=== PATIENT | female | born 1980 | race Caucasian/White ===

== ENCOUNTER → 2016-06-10 | Outpatient (CLI) | payer OTHER ==
[~2016-06-10] VITALS: Ht 160 cm; Wt 56.2 kg
[~2016-06-10] MED LIST: AUGM500T7 PO; FOLI1TAB4 PO; FURO20TA PO; HYDR2.5%T RECTAL; INSULIN HUMAN REGULAR 1,000 UNITS/10 ML VIAL SQ PRN; LACT10SO48 PO; LACTATED RINGER'S 1000 ML IV SCH; LORA1TAB12 PO; METOPROLOL TARTRATE 25 MG TAB PO PRN; METR500T10 PO; NADO1TAB16 PO; NORC5TAB PO; PANT20TA2 PO; PANT40TA3 PO; PHYT10P SQ; PRED10 PO; PROPOFOL 200 MG/20 ML AMP IV ONE; SODI650T PO; SODIUM CHLORID 0.9% 500 ML IV SCH; SPIR25TA PO; TRAM50TA PO; XIFA550T4 PO
[2016-06-10 12:01] VITALS: BP 102/62; PULSE 89; RESP 18; TEMP 98.9; O2SAT 100
[2016-06-10 12:39] LABS: INTERNATIONAL NORMALIZED RATIO 1.2 RATIO; PROTHROMBIN TIME - PATIENT 13.4 SEC (9.8-11.6)
[2016-06-10 14:11] VITALS: TEMP 98.1
[2016-06-10 14:28] VITALS: BP 108/73; PULSE 86; RESP 16; O2SAT 100
== END ==
LOC: HEND 10:56
PROVIDERS: ATTEND Internal Medicine Gastroenterology
DX: K29.50 Unspecified chronic gastritis without bleeding (principal); D64.9 Anemia, unspecified; R79.1 Abnormal coagulation profile; K70.31 Alcoholic cirrhosis of liver with ascites; K76.6 Portal hypertension; K31.89 Other diseases of stomach and duodenum; K64.4 Residual hemorrhoidal skin tags; K64.8 Other hemorrhoids; K92.1 Melena; R00.0 Tachycardia, unspecified
CPT/HCPCS: 85610; 88305; 88312

== ENCOUNTER 2016-09-03 12:44 | Day surgery (SDC) | payer OTHER ==
[~2016-09-03 12:44] MED LIST changes: -AUGM500T7 PO; -INSULIN HUMAN REGULAR 1,000 UNITS/10 ML VIAL SQ PRN; -LACTATED RINGER'S 1000 ML IV SCH; -METOPROLOL TARTRATE 25 MG TAB PO PRN; -METR500T10 PO; -NORC5TAB PO; -PHYT10P SQ; -PROPOFOL 200 MG/20 ML AMP IV ONE; -SODI650T PO; -SODIUM CHLORID 0.9% 500 ML IV SCH; -TRAM50TA PO; -XIFA550T4 PO
[2016-09-03 14:20] VITALS: BP 144/99; PULSE 102; RESP 20; TEMP 98.6; O2SAT 98
--- NOTE | 2016-09-03 16:02 | RADRPT ---
EXAM DATE/TIME: 09/03/2016 13:43 [place] COMPARISON: No previous studies available for comparison. [facility], Jul 14 2016. INDICATIONS : Right thyroid nodules. MEDICAL HISTORY : Gastroesophageal reflux disease. Liver disease. Thyroid nodule. Anxiety. Ovarian cyst. SURGICAL HISTORY : Appendectomy. EGD. Colonoscopy. Laparoscopy. Paracentesis. Left knee surgery. ENCOUNTER: Initial ACUITY: 1 day PAIN SCORE: 0/10 LOCATION: Right neck ORGAN: Right thyroid lobe SPECIMENS: Six fine needle aspirate(s) submitted for pathologic evaluation. DEVICE: 22 gauge needle Post procedure scanning reveals no hematoma or other complication. The possibility does exist that the tissue obtained will be non-diagnostic. If the sample is non-debbi gnostic a repeat biopsy or surgical biopsy may need to be performed. TECHNIQUE: 1. Ultrasound guidance for needle biopsy. 2. Needle biopsy. The risks, benefits, and alternatives to ultrasound guided needle biopsy were explained to the patien t in detail including the risk of bleeding and infection. Written and verbal informed consent was ob tained. With the patient on the ultrasound table, images were obtained. The right lobe is diffusely enlarged and heterogeneous with possibly a nodule occupying most of the right lobe. Additionally, medially in the mid gland there is a rim calcified hypoechoic nodule measuring 1.7 x 1.4 x 1.4 cm. Overlying ski n was prepped and draped in the usual sterile fashion and Lidocaine was utilized as a local anestheti c. A needle was advanced into the dominant nodule as well as a rim calcified nodule and 3 samples were o btained from each nodule.. The patient tolerated the procedure well and left the ultrasound suite in stable condition. CONCLUSION: Uncomplicated ultrasound guided needle biopsy of 2 nodules within the right lobe. Bryan Celaya MD on September 03, 2016 at 15:58 Board Certified Radiologist. This report was verified electronically.
[2016-09-03] MEDS ORDERED: SODIUM BICARBONATE 8.4% INJ 50 MEQ/50 ML SYR ONE (16:04)
[2016-09-03] MEDS ORDERED: LIDOCAINE HCL 1% PF 30 ML VIAL ONE (16:04)
[2016-10-02] MEDS ORDERED: LORA1TAB12 PO (10:18)
[2016-10-03] MEDS ORDERED: NORC5TAB PO (11:08)
[2016-11-12] MEDS ORDERED: TRAM50TA PO (11:25)
== END 2016-09-03 14:48 | disposition home or self-care (01) ==
LOC: HRAD 12:44 → HRIP 12:47 → HRAD 14:48
PROVIDERS: ATTEND Surgery Trauma Surgery
DX: E04.2 Nontoxic multinodular goiter (principal)
CPT/HCPCS: 10022; 76942; 88172; 88173

== ENCOUNTER → 2016-10-03 | Day surgery (SDC) | payer OTHER ==
[~2016-10-03] VITALS: Ht 160 cm; Wt 70.4 kg
[~2016-10-03] MED LIST changes: +*morphine SULFATE 8 MG/ML PERIprocedure ONLY ONE; +ACETAMINOPHEN 1000 MG/100 ML VIAL IV SCH; +ACETAMINOPHEN/HYDROcodone 325 MG/5 MG TAB PO PRN; +CHLORHEXIDINE GLUCONATE 2 % 1 PACK (2 CLOTHS) TOPICAL PRN; +DO NOT ADM ANY ANTICOAGULANT DRUGS PRN; +FAMOTIDINE 20 MG/2 ML VIAL ONE; -FOLI1TAB4 PO; -FURO20TA PO; +GELATIN 12 MM/7 MM FOAM ONE; +GELATIN 12 MM/7 MM FOAM TOP ONE; -HYDR2.5%T RECTAL; +HYDROmorphone HCL PF 2 MG/ML VIAL ONE; +INSULIN HUMAN REGULAR 1,000 UNITS/10 ML VIAL SQ PRN; +LACTATED RINGER'S 1000 ML INJ 1,000 ML IV ONE; +LACTATED RINGER'S 1000 ML IV PRN; +METOPROLOL TARTRATE 25 MG TAB PO PRN; +MIDAZOLAM HCL 2 MG/2 ML VIAL ONE; +MORPHINE SULFATE 4 MG/ML INJ IV PUSH PRN; -NADO1TAB16 PO; +NALOXONE HCL 0.4 MG/ML AMP IV PRN; +NORC5TAB PO; +ONDANSETRON HCL 4 MG/2 ML VIAL IV PRN; +ONDANSETRON HCL 4 MG/2 ML VIAL IV PUSH ONE; -PANT20TA2 PO; -PANT40TA3 PO; +POVIDONE IODINE 5% (ANTISEPSIS KIT) 4 APPLICATIONS EACH NARE PRN; -PRED10 PO; +PROPOFOL 200 MG/20 ML AMP IV ONE; +Post-op Orders (for Pharmacy) MISC XX ONE; +SODIUM CHLORID 0.9% 500 ML IV PRN; +SODIUM CHLORIDE 0.9% FLUSH 10 ML FLUSH IV FLUSH PRN; +SODIUM CHLORIDE 0.9% FLUSH 10 ML FLUSH IV FLUSH SCH; -SPIR25TA PO; +THROMBIN (TOPICAL) 5,000 UNIT VIAL ONE; +TRAM50TA PO; +VANCOMYCIN HCL 1000 MG ON-CALL/NS 250 ML IV SCH; +ceFAZolin 1,000 MG/NS 100 ML IV SCH; +fentaNYL CITRATE 250 MCG/5 ML AMP ONE
[2016-10-03 06:43] VITALS: BP 137/90; PULSE 93; RESP 18; TEMP 98.6; O2SAT 98
[2016-10-03 07:11] LABS: AUTOMATED NEUTROPHIL # 2.7 TH/MM3 (1.8-7.7); BASOPHIL % 0.6 % (0.0-2.0); EOSINOPHIL % 1.3 % (0.0-4.0); HEMATOCRIT 39.7 % (35.0-46.0); HEMO FLAGS DIFF FINAL; LYMPH % 20.2 % (9.0-44.0); LYMPHOCYTE # 0.8 TH/MM3 (1.0-4.8); MEAN CELL VOLUME 94.5 FL (80.0-100.0); MEAN CORPUSCULAR HGB CONC 33.9 % (32.0-36.0); NEUT % 66.9 % (16.0-70.0); PLATELET COUNT 125 TH/MM3 (150-450); RED CELL DISTRIBUTION WIDTH 12.5 % (11.6-17.2)
[2016-10-03 07:36] LABS: BICARBONATE 22.5 MEQ/L (21.0-32.0); POTASSIUM 3.7 MEQ/L (3.5-5.1)
--- NOTE | 2016-10-03 08:11 | EKG ---
Date Performed: 10/03/2016 Time Performed: 07:51:56 PTAGE: 35 years EKG: SINUS TACHYCARDIA POSSIBLE ANTERIOR MYOCARDIAL INFARCTION , OF INDETERMINATE AGE ABNORMAL E CG NO SIGNIFICANT CHANGE FROM PRIOR ELECTROCARDIOGRAM. PREVIOUS TRACING : 03/01/2016 15.28 DOCTOR: Fidel Elizalde Interpretating Date/Time 10/03/2016 08:10:27
--- NOTE | 2016-10-03 11:06 | HHI.PR ---
cc: Alex Horan MD Immediate Post Op Note Procedure Date: October 03, 2016 Pre Op Diagnosis: Right thyroid follicular lesion/mass Post Op Diagnosis: Same Surgeon: Alex Horan Education Specialist(s): YARED Booker Procedure: Right extended thryoid lobectomy Findings: Right lower lobe thyroid mass Complications: None Specimen(s) removed: Right thyroid and isthmus to pathology Estimated blood loss: 100 ml Anesthesia: General Drains: None IVF (1000 ml) Patient to: PACU Patient Condition: Good Date/Time of Procedure: SEE SURGICAL CARE RECORD Alex Horan MD October 03, 2016 11:06
[2016-10-03 13:26] VITALS: BP 138/87; PULSE 71; RESP 16; TEMP 97.7; O2SAT 96
--- NOTE | 2016-10-22 08:06 | MP ---
cc: AMISH MCGINNIS M.D. DATE OF SURGERY: 10/03/2016 PROCEDURE Extended right thyroid lobectomy. PREOPERATIVE DIAGNOSIS Right thyroid mass. POSTOPERATIVE DIAGNOSIS Right thyroid mass. ANESTHESIA General endotracheal. SURGEON Aung. ESTIMATED BLOOD LOSS 100 mL. FLUIDS 1000 mL crystalloid. COMPLICATIONS None. DRAINS None. SPECIMEN Right thyroid lobe to pathology. PROCEDURE IN DETAIL The patient was taken to the operating room after marking the right side of her neck and placed on the operating table in the supine position. After an adequate level of general endotracheal anesthesia was achieved, the patient's neck was placed in a slight hyperextended position and the neck prepped and draped. A timeout was taken confirming the correct patient, site and procedure to be performed. An incision was made in the neck and in of the skin folds and carried down through the platysma with electrocautery. The strap muscles were divided in the midline and retracted laterally. Dissection was carried out exclusively on the right side of the neck. The thyroid gland was dissected from the most lateral location. The superior thyroid vessels were identified and isolated first. These were divided right on the gland with a Harmonic focus scalpel. The inferior vessels were then isolated right on the gland as well and these were divided with the Harmonic scalpel. The isthmus of the thyroid was divided toward the left side of the gland and then was peeled off of the trachea. Dissection was then carried out laterally with the gland mobilized and the gland was then retracted medially. Blunt dissection pulled the gland medially and both the superior and inferior parathyroid glands were identified and kept within the patient. They appeared viable at the end of the procedure. Dissection was then carried out to where the right recurrent laryngeal nerve was identified utilizing the neuro probe. This was kept free and away from all of the area of dissection. Careful blunt dissection was used to further mobilize the gland superiorly and inferiorly. As dissection was carried out toward the ligament of Feng, small vessels were identified separately and these were divided very carefully with minimal use of current with the Harmonic scalpel. A very small tuft of thyroid gland was left right at the ligament of Feng so as not to injure the laryngeal nerve. The gland was then completely excised off of the trachea and passed off the table. Examination of the nerve again identified it and there was no dissection located right in the location of the nerve. At this point Gelfoam and thrombin was placed into the right neck with hemostasis assured after placing the patient in slight Trendelenburg position. The strap muscles were re-approximated in the midline with 3-0 Vicryl suture and the platysma closed with interrupted 3-0 Vicryl. The skin was closed with 5-0 Prolene in a running subcuticular fashion. The wound was dressed with Steri-Strips. The patient was extubated and taken back to the recovery room in stable condition. The patient had normal voice at the end of the procedure. She tolerated the procedure well. Sponge, needle and instrument counts were reported to be correct. MD ALEXANDRIA Acosta/LUPE /7:53 AM /8:00 AM MTDAlphonso
== END | disposition home or self-care (01) ==
LOC: HSDC 05:54
PROVIDERS: ATTEND Surgery Trauma Surgery
DX: C73 Malignant neoplasm of thyroid gland (principal); R00.0 Tachycardia, unspecified; Z87.19 Personal history of other diseases of the digestive system; Z87.891 Personal history of nicotine dependence
CPT/HCPCS: 00320; 60252; 80048; 85025; 88307; 93005; J0131; J0690; J1170; J2250; J2270; J2405; J3010; J3370; J7050; J7120

== ENCOUNTER → 2016-11-12 | Day surgery (SDC) | payer OTHER ==
[~2016-11-12] VITALS: Ht 160 cm; Wt 70.1 kg
[~2016-11-12] MED LIST changes: +ACETAMINOPHEN 1000 MG/100 ML VIAL IV ONE; +DEXAMETHASONE SOD PHOS 4 MG/ML VIAL ONE; +ESMOLOL HCL 100 MG/10 ML VIAL IV ONE; -GELATIN 12 MM/7 MM FOAM ONE; -GELATIN 12 MM/7 MM FOAM TOP ONE; -HYDROmorphone HCL PF 2 MG/ML VIAL ONE; +SODIUM CHLOR 0.9% 1000 ML INJ 1,000 ML IV SCH; -SODIUM CHLORIDE 0.9% FLUSH 10 ML FLUSH IV FLUSH PRN; -SODIUM CHLORIDE 0.9% FLUSH 10 ML FLUSH IV FLUSH SCH; +SODIUM CHLORIDE 0.9% FLUSH 5 ML FLUSH IVF PRN; +SODIUM CHLORIDE 0.9% FLUSH 5 ML FLUSH IVF SCH; +SUGAMMADEX SODIUM 200 MG/2 ML VIAL IV PUSH ONE; -THROMBIN (TOPICAL) 5,000 UNIT VIAL ONE; +VANCOMYCIN 1,000 MG/NS 250ML (for <70 kg) IV SCH; -VANCOMYCIN HCL 1000 MG ON-CALL/NS 250 ML IV SCH; +diphenhydrAMINE HCL 25 MG CAP PO PRN
[2016-11-12 06:30] VITALS: BP 139/91; PULSE 83; RESP 16; TEMP 98.2; O2SAT 100
[2016-11-12 06:54] LABS: AUTOMATED NEUTROPHIL # 2.4 TH/MM3 (1.8-7.7); BASOPHIL % 1.1 % (0.0-2.0); EOSINOPHIL # 0.1 TH/MM3 (0-0.4); EOSINOPHIL % 2.2 % (0.0-4.0); HEMATOCRIT 40.1 % (35.0-46.0); HEMO FLAGS DIFF FINAL; LYMPH % 31.4 % (9.0-44.0); LYMPHOCYTE # 1.3 TH/MM3 (1.0-4.8); MEAN CELL VOLUME 93.4 FL (80.0-100.0); MEAN CORPUSCULAR HEMOGLOBIN 32.7 PG (27.0-34.0); MONO % 10.1 % (0.0-8.0); NEUT % 55.2 % (16.0-70.0); PLATELET COUNT 205 TH/MM3 (150-450); RED BLOOD COUNT 4.29 MIL/MM3 (4.00-5.30); RED CELL DISTRIBUTION WIDTH 12.8 % (11.6-17.2); WHITE BLOOD COUNT 4.3 TH/MM3 (4.0-11.0)
[2016-11-12 07:08] LABS: BICARBONATE 24.6 MEQ/L (21.0-32.0); POTASSIUM 3.9 MEQ/L (3.5-5.1)
[2016-11-12 08:05] LABS: BETA HCG QUANT LESS THAN 1 MIU/ML (0-5)
--- NOTE | 2016-11-12 11:20 | HHI.PR ---
cc: Alex Horan MD Immediate Post Op Note Procedure Date: Nov 12, 2016 Pre Op Diagnosis: Follicular carcinoma Right lobe thyroid Post Op Diagnosis: Same Surgeon: Alex Horan Delivery Helper(s): Austin Procedure: Completion (left) thyroidectomy Complications: None Specimen(s) removed: Left thyroid lobe to pathology Estimated blood loss: 50 ml Anesthesia: General Drains: None IVF (1200 ml) Patient to: PACU Patient Condition: Good Date/Time of Procedure: SEE SURGICAL CARE RECORD Alex Horan MD Nov 12, 2016 11:20
[2016-11-12 14:30] VITALS: BP 144/97; PULSE 83; RESP 20; TEMP 98; O2SAT 99
--- NOTE | 2016-11-19 07:25 | MP ---
cc: AMISH HORAN M.D. DATE OF SURGERY 11/12/2016 PROCEDURE Completion thyroidectomy (left thyroid lobectomy). ANESTHESIA General endotracheal SURGEON Aimsh Horan MD ESTIMATED BLOOD LOSS 50 mL FLUIDS 1200 mL crystalloid COMPLICATIONS None DRAINS None SPECIMEN Left thyroid lobe to pathology. PREOPERATIVE DIAGNOSIS Follicular carcinoma right lobe of thyroid POSTOPERATIVE DIAGNOSIS Follicular carcinoma right lobe of thyroid with previous extended right thyroid lobectomy PROCEDURE IN DETAIL The patient was seen in the holding area and the left side of her neck marked. She was taken to the operating room and placed on the operating table in the supine position. After an adequate level of general endotracheal anesthesia was achieved, the neck was placed in slightly hyperextended position and the neck prepped and draped. Time-out was taken confirming the correct patient site and procedure to be performed. Incision was made through the previous midline incision in the neck and carried down through the platysma. Careful dissection down to the trachea and then dissection exclusively on the left side of the neck to minimize any bleeding. The strap muscles were pulled laterally and the left lobe of the thyroid identified. Dissection was carried down on the left side of the neck and the inferior thyroid vessels were first identified and divided with the harmonic scalpel. The gland was rotated medially and the superior vessels on the upper pole were identified as well. The harmonic scalpel was used to take these down as well. The gland was rotated further medially and the recurrent laryngeal nerve was identified and kept well away from all dissection. The lower and upper parathyroid glands were identified and these were kept free and viable at the end of the procedure. The patient had the gland completely excised and at the completion of the procedure, both the recurrent laryngeal nerve and the superior laryngeal nerve had been identified and all dissection kept away from these structures. At this point, the patient had placement of snow in the left neck to achieve absolute hemostasis. The patient was placed in slight Trendelenburg position and no bleeding was noted. The patient was then placed in a neutral position once again and the strap muscles reapproximated loosely with 3-0 Vicryl suture. The platysma was closed with interrupted 3-0 Vicryl and the skin closed with 5-0 Prolene in a running subcuticular fashion. The patient was extubated and taken back to the recovery room in stable condition. She tolerated the procedure well. MD ALEXANDRIA Acosta/DJL /9:39 AM /7:24 AM
== END | disposition home or self-care (01) ==
LOC: HSDC 05:46
PROVIDERS: ATTEND Surgery Trauma Surgery
DX: C73 Malignant neoplasm of thyroid gland (principal)
CPT/HCPCS: 00320; 60220; 80048; 84702; 85025; 88307; 94150; J0131; J0690; J1100; J2250; J2270; J2405; J3010; J3370; J7050; J7120